=== PATIENT | female | born 1995 | race Caucasian/White ===

== ENCOUNTER 2017-09-11 22:45 | Emergency (ER) | END 2017-09-12 06:55 | disposition home or self-care (01) ==

== ENCOUNTER 2017-09-15 18:54 | Emergency (ER) | END 2017-09-15 23:29 | disposition home or self-care (01) ==

== ENCOUNTER 2017-09-26 18:52 | Emergency (ER) | END 2017-09-26 23:38 | disposition home or self-care (01) ==

== ENCOUNTER 2018-03-15 16:48 | Emergency (ER) | END 2018-03-15 19:21 | disposition home or self-care (01) ==

== ENCOUNTER 2018-07-30 13:14 | Emergency (ER) | payer BC ==
[~2018-07-30] VITALS: Ht 160 cm; Wt 66.5 kg
[~2018-07-30 13:14] MED LIST: BACTDS PO; BENZ-6 PO; CEPH-443 PO; CETI10CA PO; METR500T PO; MICO100S4 VG; NAPR-985 PO
[2018-07-30 13:26] VITALS: BP 128/89; PULSE 76; RESP 18; Ht 160 cm; Wt 66.5 kg
[2018-07-30] MEDS ORDERED: D-ME473S2 PO (15:38)
--- NOTE | 2018-07-30 15:47 | ERD ---
ER Documentation Chief Complaint Chief Complaint cough , chest congestion x 1month , chest wall pain with coughing HPI Patient is a 23-year-old female who presents to the ER for concerns of intermittent cough, shortness of breath and chest pain for the last 4 months. Patient states that her cough is occasional and mild. She states that she does feel shortness of breath throughout the day. She states she occasionally does feel her heart racing. Patient denies any chest pain at this time. She states the pain is typically localized to her mid sternum and is nonradiating. Patient denies any nausea, vomiting, left upper extremity pain, diaphoresis or LOC. Of note, patient states that she was seen on 07-16-18 at [place]. Patient states that blood work including d-dimer, CT chest x-ray, EKG and CT imaging. She states all results were negative and she was told that she had bronchitis and she was sent home with pro-air, prednisone and albuterol. Patient denies any fevers or chills. Patient denies any hemoptysis. Patient denies any OCP use, lower leg swelling, history of DVT/PE, recent surgeries, recent travel. ROS All systems reviewed and are negative except as per history of present illness. Medications Home Meds Active Scripts Dextromethorphan Hb-Promethazine Hcl* (Promethazine DM* Syrup) 473 Ml Syrup, 5 ML PO Q6 PRN for COUGH, #4 OZ Prov:INDU TRINIDAD PA-C 07/30/18 Cetirizine Hcl* (Zyrtec*) 10 Mg Capsule, 10 MG PO DAILY, #30 TAB.CHEW Prov:JIGNA BELTRAN PA-C 06/05/18 Benzonatate* (Tessalon Perle*) 100 Mg Capsule, 100 MG PO Q8H PRN for COUGH, #30 CAP Prov:JIGNA BELTRAN PA-C 06/05/18 Metronidazole* (Flagyl*) 500 Mg Tablet, 500 MG PO TID for 7 Days, TAB Prov:JIGNA BELTRAN PA-C 06/05/18 Miconazole Nitrate (Miconazole 7) 100 Mg Supp.vag, 100 MG VG QHS, #7 SUPP.VAG Prov:ONUR DC PA-C 03/15/18 Cephalexin* (Keflex*) 500 Mg Capsule, 500 MG PO QID for 7 Days, CAP Prov:DCONURDEB Gregg PA-C 03/15/18 Naproxen* (Naprosyn*) 500 Mg Tablet, 500 MG PO BID PRN for PAIN AND/OR INFLAMMATION, #30 TAB Prov:DIONI HUANG 09/26/17 Sulfamethoxazole-Trimethoprim* (Bactrim* DS) 800-160 Mg Tab, 1 TAB PO BID for 5 Days, TAB Prov:SHAY SIMON PA-C 11/25/14 Allergies Allergies: Coded Allergies: Penicillins (Verified Allergy, Unknown, 06/05/18) PMhx/Soc History of Surgery: No Anesthesia Reaction: No Hx Neurological Disorder: No Hx Respiratory Disorders: No Hx Cardiac Disorders: No Hx Psychiatric Problems: No Hx Miscellaneous Medical Probl: No Hx Alcohol Use: Yes (SOCIAL) Hx Substance Use: No Hx Tobacco Use: No FmHx Family History: No diabetes Physical Exam Vitals Vital Signs Date Temp Pulse Resp B/P (MAP) Pulse Ox O2 O2 Flow FiO2 Time Delivery Rate 07/30/18 98.2 76 18 128/89 99 13:26 (102) Physical Exam GENERAL: Well-developed, well-nourished female. Appears in no acute distress. Speaking in full sentences. HEAD: Normocephalic, atraumatic. No deformities or ecchymosis. EYE: Pupils equal, round, and reactive to light. EOMs intact. No conjunctival erythema. No eye discharge. NECK: Supple. No meningismus. Normal ROM of the neck. LUNG: Clear to auscultation bilaterally. No rhonchi, wheezing, rales or coarse breath sounds. HEART: Regular rate and rhythm. No murmurs, rubs or gallops. Equal pulses in bilateral upper extremities. EXTREMITIES: Equal pulses bilaterally. No peripheral clubbing, cyanosis or edema. No unilateral leg swelling. NEUROLOGIC: Alert and oriented to person, place and time. Moving all four extremities. 5/5 strength in all extremities. Normal speech. Steady gait. SKIN: Normal color. Warm and dry. No rashes or lesions. Procedures/MDM ED COURSE: The patient was stable throughout ED course. I kept the patient and/or family informed of laboratory and diagnostic imaging results throughout the ED course. EKG: Read by Dr. Nevarez, attending physician. EKG shows normal sinus rhythm at a rate of normal sinus rhythm with sinus arrhythmia at [address] elevations were noted. DIAGNOSTIC IMAGING: Read by radiologist. DIAGNOSTIC IMAGING REPORT Patient: HAYDEN MATTHEWS : 1995 Age: 23 Sex: F MR #: [id number] DOS: 07/30/18 1432 Ordering MD: INDU TRINIDAD PA-C Location: [facility] Room/Bed: PROCEDURE: XR Chest PA CLINICAL INDICATION: Chest pain times 4 months TECHNIQUE: An PA radiograph of the chest was submitted. COMPARISON: 06/05/2018 FINDINGS: Cardiovascular: The cardiovascular silhouette appears unremarkable. Lung Hurtado: The lung hurtado appear clear with no nodule, alveolar infiltrate, or interstitial prominence evident. Pleural Spaces: There is no pneumothorax or pleural fluid accumulation evident. Osseous Structures: The osseous structures appear intact. Soft Tissues: The soft tissues appear unremarkable. IMPRESSION: Stable and unremarkable PA chest. Physician Maddie Date Time Electronically viewed and signed by Physician Maddie on 07/30/2018 15:14 RH/ CC: INDU TRINIDAD PA-C MEDICAL DECISION MAKING: This is a 23-year-old female presents the ER for concerns of intermittent chest pain or shortness of breath for the last 4 months. Patient does report a mild cough with it.. Patient denied any leg swelling, recent surgeries, travel, exogenous estrogen use. Of note, patient was seen at [place] on 07-16-18 for similar symptoms. Patient states she underwent full workup including blood work, EKG, and x-ray and CT imaging and all studies were unremarkable. Patient was diagnosed with bronchitis and discharged home with prescriptions for veronica thromycin, albuterol and prednisone. Patient states she continues to have symptoms that she presents to this ER. ED IE report shows patient has had 6 visits to the emergency department in the last year. Vital signs were reviewed. Patient was afebrile. Patient was not hypoxic. Cardiac exam was normal. Lung exam was normal. EKG was within normal limits. Chest x-ray was unremarkable. Given that patient recently underwent full workup, and studies were unremarkable, I do not feel that repeat studies are indicated at this time. PERC score is 0. Patient was advised to follow-up with a end packer if she continues to have symptoms. Referral information provided. At this time, patient's presentation is most consistent with chest pain and shortness of breath. Low suspicion for ACS, arrhythmia, pericarditis, myocarditis, endocarditis, pleural effusion, pneumothorax, pneumonia, PE, rib fracture. Patient was nontoxic, [id number] prior to discharge PRESCRIPTIONS: Promethazine cough syrup DISCHARGE: At this time, patient is stable for discharge and outpatient management. I have instructed the patient to follow-up with his/her primary care physician in 1-2 days. If symptoms persist, patient may need to see a specialist for further examinations and testing. I have instructed the patient to promptly return to the ER at any time for any new or worsening symptoms including increased increased pain, fever, nausea, vomiting, numbness, weakness, diaphoresis or LOC. The patient and/or family expressed understanding of and agreement with this plan. All questions were answered. Home care instructions were provided. Disclaimer: Inadvertent spelling and grammatical errors are likely due to EHR/dictation software use and do not reflect on the overall quality of patient care. Also, please note that the electronic time recorded on this note does not necessarily reflect the actual time of the patient encounter. Departure Diagnosis: Primary Impression: Cough Additional Impressions: Shortness of breath Chest pain Chest pain type: unspecified Qualified Codes: R07.9 - Chest pain, unspecified Condition: Fair Patient Instructions: Chest Pain, Uncertain Cause, Dyspnea Referrals: COMMUNITY CLINICS YOU HAVE RECEIVED A MEDICAL SCREENING EXAM AND THE RESULTS INDICATE THAT YOU DO NOT HAVE A CONDITION THAT REQUIRES URGENT TREATMENT IN THE EMERGENCY DEPARTMENT. FURTHER EVALUATION AND TREATMENT OF YOUR CONDITION CAN WAIT UNTIL YOU ARE SEEN IN YOUR DOCTORS OFFICE WITHIN THE NEXT 1-2 DAYS. IT IS YOUR RESPONSIBILITY TO MAKE AN APPOINTMENT FOR FOLOW-UP CARE. IF YOU HAVE A PRIMARY DOCTOR --you should call your primary doctor and schedule an appointment IF YOU DO NOT HAVE A PRIMARY DOCTOR YOU CAN CALL OUR PHYSICIAN REFERRAL HOTLINE AT IF YOU CAN NOT AFFORD TO SEE A PHYSICIAN YOU CAN CHOSE FROM THE FOLLOWING [facility] [address] [place] [facility] [address] [place] [facility] [address] [facility] [address] [facility] [address] [facility]. [address] [facility] [facility] YOU HAVE RECEIVED A MEDICAL SCREENING EXAM AND THE RESULTS INDICATE THAT YOU DO NOT HAVE A CONDITION THAT REQUIRES URGENT TREATMENT IN THE EMERGENCY DEPARTMENT. FURTHER EVALUATION AND TREATMENT OF YOUR CONDITION CAN WAIT UNTIL YOU ARE SEEN IN YOUR DOCTORS OFFICE WITHIN THE NEXT 1-2 DAYS. IT IS YOUR RESPONSIBILITY TO MAKE AN APPOINTMENT FOR FOLOW-UP CARE. IF YOU HAVE A PRIMARY DOCTOR --you should call your primary doctor and schedule and appointment IF YOU DO NOT HAVE A PRIMARY DOCTOR YOU CAN CALL OUR PHYSICIAN REFERRAL HOTLINE AT . IF YOU CAN NOT AFFORD TO SEE A PHYSICIAN YOU CAN CHOSE FROM THE FOLLOWING COUNTS INCLUDE 234 BEDS AT THE [facility] INSTITUTIONS: [facility] [address] [place] [address] [facility] [address] [place] [address] [facility] [address] [place] [address] Additional Instructions: Follow-up with a end packer for further management of your ongoing shortness of breath. Call your primary care doctor TOMORROW for an appointment during the next 1-2 days.See the doctor sooner or return here if your condition worsens before your appointment time. INDU TRINIDAD PA-C Jul 30, 2018 15:47
== END 2018-07-30 15:50 | disposition home or self-care (01) ==
LOC: FTE 13:14
DX: J40 Bronchitis, not specified as acute or chronic (principal); R07.9 Chest pain, unspecified
CPT/HCPCS: 71045; 93005